=== PATIENT | female | born 1985 | race Caucasian/White ===

== ENCOUNTER 2022-04-26 09:43 | Emergency (ER) | payer OTHER ==
[~2022-04-26] VITALS: Ht 149.9 cm; Wt 79.8 kg
[~2022-04-26 09:43] MED LIST: CEPH250C16 PO
[2022-04-26] MEDS ORDERED: ONDANSETRON 4 MG/2 ML VIAL IVP ONE (10:10)
[2022-04-26] MEDS ORDERED: NACL 0.9% 1,000 ML IV ONE (10:10)
[2022-04-26] MEDS ORDERED: KETOROLAC 30 MG/ML VIAL IVP ONE (10:10)
[2022-04-26 10:11] VITALS: BP 152/84
[2022-04-26 11:03] LABS: BASOPHILS % (AUTO) 0.2 % (0.0-2.0); EOSINOPHILS % (AUTO) 0.1 % (0.0-4.0); HEMATOCRIT 44.8 % (36-48); HEMOGLOBIN 15.2 g/dL (12.0-16.0); LYMPHOCYTES # (AUTO) 1.4 K/uL (2.5-16.5); LYMPHOCYTES % (AUTO) 14.8 % (20.5-51.1); MEAN CORPUSCULAR HEMOGLOBIN 29 pg (27-31); MEAN CORPUSCULAR HGB CONC 34 g/dL (33-37); MEAN CORPUSCULAR VOLUME 86.8 fL (80-94); MONOCYTES # (AUTO) 0.5 K/uL (0.8-1.0); NEUTROPHILS # (AUTO) 7.7 K/uL (1.8-7.7); NEUTROPHILS % (AUTO) 79.9 % (42.2-75.2); PLATELET COUNT (AUTO) 236 K/uL (140-450); RED BLOOD CELL COUNT(AUTO) 5.16 MIL/uL (4.20-5.40); RED CELL DISTRIBUTION WIDTH 13.3 % (11.6-13.7); WHITE BLOOD COUNT (AUTO) 9.7 K/uL (4.8-10.8)
--- NOTE | 2022-04-26 11:37 | NUR ---
PT AMB TO BED 11.
[2022-04-26] MEDS ORDERED: ONDANSETRON 4 MG/2 ML VIAL ONE (11:40)
[2022-04-26] MEDS ORDERED: KETOROLAC 30 MG/ML VIAL ONE (11:40)
--- NOTE | 2022-04-26 11:45 | NUR ---
36 y/o Female BIB self for c/o 03/10 abd pain, low appetite, diarrhea since yesterday. 03/10 pain at this time. Denies any blood in emesis or diarrhea. AOX4, able to make needs known. pmh: denies allergy: vancomycin med: denies
--- NOTE | 2022-04-26 11:47 | NUR ---
per lab, pt negative
[2022-04-26 11:54] LABS: ALBUMIN 3.6 g/dL (3.4-5.0); ANION GAP 15.4 (8-16); ASPARTATE AMINOTRANSFERASE 24 U/L (15-37); CARBON DIOXIDE 24.9 mmol/L (21-32); CHLORIDE 102 mmol/L (98-107); CREATININE 0.7 mg/dL (0.6-1.3); GFR ARICAN-AMERICAN 123 mL/min (>90); GLUCOSE 104 mg/dL (74-106); POTASSIUM 3.3 mmol/L (3.5-5.1); SODIUM SERUM 139 mmol/L (136-145); TOTAL BILIRUBIN 0.4 mg/dL (0.0-1.0); UREA NITROGEN, BLOOD 7 mg/dL (7-18)
[2022-04-26] MEDS ORDERED: ALBU0.0912 INH (12:21)
[2022-04-26] MEDS ORDERED: BEN10 PO (12:21)
[2022-04-26] MEDS ORDERED: ONDA-188 PO (12:21)
[2022-04-26] MEDS ORDERED: IBUP-2213 PO (12:21)
[2022-04-26] MEDS ORDERED: ROB PO (12:21)
--- NOTE | 2022-04-26 13:03 | NUR ---
Patient discharged with v/s stable. Written and verbal after care instructions given and explained. Patient alert, oriented and verbalized understanding of instructions. Ambulatory with steady gait. All questions addressed prior to discharge. ID band removed. Patient advised to follow up with PMD. Rx of albuterol, ibuprofen, zofran, dicyclomine, guaifenesin (sent) given. Patient educated on indication of medication including possible reaction and side effects. Opportunity to ask questions provided and answered. imaging, labs and work note given
[2022-04-26 13:05] VITALS: BP 136/81
== END 2022-04-26 13:05 | disposition home or self-care (01) ==
LOC: MED 09:43
DX: J40 Bronchitis, not specified as acute or chronic (principal); Z20.822 Contact with and (suspected) exposure to COVID-19; K52.9 Noninfective gastroenteritis and colitis, unspecified; Z79.899 Other long term (current) drug therapy; Z88.8 Allergy status to other drugs, medicaments and biological substances
CPT/HCPCS: 36415; 71045; 80053; 81002; 81025; 84484; 84702; 85025; 87426; 87804; 93005; 96361; 96374; 96375; 99285; J1885; J2405; J7030